=== PATIENT | male | born 1940 | race African-American/Black ===

== ENCOUNTER 2020-10-31 19:11 | Emergency (ER) | payer OTHER ==
[~2020-10-31] VITALS: Ht 190.5 cm; Wt 73.0 kg
[~2020-10-31 19:11] MED LIST: NIFE20CA PO; SPIRIVA
[2020-10-31] MEDS ORDERED: IPRATROPIUM BROMIDE (0.02%) 0.5MG/2.5ML NEB HHN STA (20:10)
[2020-10-31] MEDS ORDERED: DEXAMETHASONE 10 MG/ML VIAL IV ONE (20:15)
[2020-10-31 20:19] LABS: BASOPHILS % 0.5 % (0.0-2.0); EOSINOPHILS % 5.6 % (0.0-5.0); HEMATOCRIT. 40.7 % (42.0-52.0); LYMPHOCYTES % 20.6 % (20.0-50.0); MEAN CORPUSCULAR HEMOGLOBIN 27.2 pg (28.0-32.0); MEAN CORPUSCULAR VOLUME 85.2 fL (80.0-94.0); MEAN PLATELET VOLUME 8.8 fl (7.4-10.4); MONOCYTES % 11.2 % (2.0-8.0); NEUTROPHILS % 62.1 % (40.0-76.0); PLATELET 237 x1000/uL (130-400); RED BLOOD CELL COUNT 4.77 mill/uL (4.7-6.1); RED CELL DISTRIBUTION WIDTH 15.2 % (11.6-14.6)
[2020-10-31 20:24] LABS: CHLORIDE 104 mEq/L (98-107)
[2020-10-31 20:29] LABS: C REACTIVE PROTEIN QUANT 1.6 mg/L (0.0-3.0)
[2020-10-31 20:33] LABS: CREATINE KINASE 68 IU/L (39-308)
[2020-10-31 20:36] LABS: PROTHROMBIN TIME 10.9 sec (9.6-11.0)
[2020-10-31] MEDS: ALBUTEROL (0.083%) 2.5MG/3ML NEB HHN SCH ×3 (21:09→21:45)
[2020-10-31 21:29] LABS: CLARITY URINE CLEAR (CLEAR); COLOR URINE YELLOW (YELLOW); KETONES URINE NEGATIVE (NEGATIVE); LEUKOCYTE ESTERASE URINE NEGATIVE (NEGATIVE); NITRITE URINE NEGATIVE (NEGATIVE); OCCULT BLOOD URINE NEGATIVE (NEGATIVE); PROTEIN URINE NEGATIVE (NEGATIVE); SPECIFIC GRAVITY URINE 1.023 (1.005-1.030)
[2020-11-01 00:59] VITALS: BP 119/75
== END 2020-11-01 01:37 | disposition short-term general hospital (02) ==
LOC: ER 19:11 → CANBEDREQ 23:40 → ER 11-01 01:37
DX: J44.1 Chronic obstructive pulmonary disease with (acute) exacerbation (principal); I10 Essential (primary) hypertension; M19.90 Unspecified osteoarthritis, unspecified site; Z20.822 Contact with and (suspected) exposure to COVID-19; Z87.891 Personal history of nicotine dependence
CPT/HCPCS: 36415; 71045; 80053; 81003; 82550; 82728; 83605; 83615; 83880; 84145; 84484; 85025; 85384; 85610; 86140; 87040; 87086; 87426; 93005; 96374; 99285; J1100

== ENCOUNTER 2021-04-18 05:04 | Emergency (ER) | payer OTHER ==
[~2021-04-18] VITALS: Ht 175.3 cm; Wt 68.0 kg
[2021-04-18] MEDS ORDERED: METHYLPREDNISOLONE SOD SUCC 125 MG/2 ML VIAL IV STA (05:15)
[2021-04-18] MEDS ORDERED: ALBUTEROL (0.083%) 2.5MG/3ML NEB HHN STA (05:15)
[2021-04-18] MEDS ORDERED: IPRATROPIUM BROMIDE (0.02%) 0.5MG/2.5ML NEB HHN STA (05:15)
[2021-04-18 06:01] LABS: BASOPHILS % 0.7 % (0.0-2.0); EOSINOPHILS % 8.4 % (0.0-5.0); HEMATOCRIT. 40.3 % (42.0-52.0); HEMOGLOBIN. 13.4 g/dL (14.0-18.0); LYMPHOCYTES % 23.6 % (20.0-50.0); MEAN CORPUSCULAR VOLUME 84.1 fL (80.0-94.0); MEAN PLATELET VOLUME 8.9 fl (7.4-10.4); MONOCYTES % 13.8 % (2.0-8.0); NEUTROPHILS % 53.5 % (40.0-76.0); PLATELET 218 x1000/uL (130-400); RED BLOOD CELL COUNT 4.79 mill/uL (4.7-6.1); RED CELL DISTRIBUTION WIDTH 15.1 % (11.6-14.6)
[2021-04-18 06:10] LABS: CHLORIDE 105 mEq/L (98-107)
[2021-04-18] MEDS ORDERED: ALBU6.7H9 INH (06:45)
[2021-04-18] MEDS ORDERED: P50 PO (06:45)
[2021-04-18 07:15] VITALS: BP 132/89
== END 2021-04-18 07:35 | disposition home or self-care (01) ==
LOC: ER 05:04
DX: J44.1 Chronic obstructive pulmonary disease with (acute) exacerbation (principal); I10 Essential (primary) hypertension; M06.9 Rheumatoid arthritis, unspecified
CPT/HCPCS: 36415; 71045; 80053; 83880; 84484; 85025; 93005; 94644; 96374; 99285; J2930

== ENCOUNTER 2021-05-07 12:55 | Emergency (ER) | payer OTHER ==
[~2021-05-07] VITALS: Ht 177.8 cm; Wt 70.0 kg
[~2021-05-07 12:55] MED LIST changes: +ALBU6.7H9 INH; +P50 PO
[2021-05-07] MEDS ORDERED: ALBUTEROL (0.083%) 2.5MG/3ML NEB HHN STA (15:09)
[2021-05-07 15:41] LABS: BASOPHILS % 0.6 % (0.0-2.0); EOSINOPHILS % 6.2 % (0.0-5.0); HEMATOCRIT. 38.5 % (42.0-52.0); HEMOGLOBIN. 12.8 g/dL (14.0-18.0); LYMPHOCYTES % 17.3 % (20.0-50.0); MEAN CORPUSCULAR VOLUME 84.5 fL (80.0-94.0); MEAN PLATELET VOLUME 8.9 fl (7.4-10.4); MONOCYTES % 12.7 % (2.0-8.0); NEUTROPHILS % 63.2 % (40.0-76.0); PLATELET 188 x1000/uL (130-400); RED BLOOD CELL COUNT 4.56 mill/uL (4.7-6.1); RED CELL DISTRIBUTION WIDTH 15.6 % (11.6-14.6)
[2021-05-07 15:46] LABS: CHLORIDE 105 mEq/L (98-107); CLARITY URINE CLEAR (CLEAR); COLOR URINE YELLOW (YELLOW); KETONES URINE NEGATIVE (NEGATIVE); LEUKOCYTE ESTERASE URINE NEGATIVE (NEGATIVE); NITRITE URINE NEGATIVE (NEGATIVE); OCCULT BLOOD URINE NEGATIVE (NEGATIVE); PROTEIN URINE NEGATIVE (NEGATIVE); SPECIFIC GRAVITY URINE 1.016 (1.005-1.030)
[2021-05-07 18:15] VITALS: BP 128/85
[2021-05-07] MEDS ORDERED: ALBU6.7H9 INH (18:31)
== END 2021-05-07 19:17 | disposition home or self-care (01) ==
LOC: ER 12:55
DX: J44.1 Chronic obstructive pulmonary disease with (acute) exacerbation (principal); K59.00 Constipation, unspecified; I10 Essential (primary) hypertension
CPT/HCPCS: 36415; 71045; 80053; 81003; 85025; 93005; 94640; 99285

== ENCOUNTER 2022-03-06 08:27 | Emergency (ER) | payer OTHER ==
[~2022-03-06] VITALS: Ht 182.9 cm; Wt 75.0 kg
[2022-03-06] MEDS ORDERED: IPRATROPIUM BROMIDE (0.02%) 0.5MG/2.5ML NEB HHN STA (08:46)
[2022-03-06] MEDS ORDERED: ALBUTEROL (0.083%) 2.5MG/3ML NEB HHN STA (08:46)
[2022-03-06] MEDS ORDERED: METHYLPREDNISOLONE SOD SUCC 125 MG/2 ML VIAL IV STA (08:46)
[2022-03-06 10:29] LABS: BASOPHILS % 0.6 % (0.0-2.0); EOSINOPHILS % 5.6 % (0.0-5.0); HEMATOCRIT. 41.8 % (42.0-52.0); HEMOGLOBIN. 13.8 g/dL (14.0-18.0); LYMPHOCYTES % 17.8 % (20.0-50.0); MEAN CORPUSCULAR VOLUME 84.9 fL (80.0-94.0); MEAN PLATELET VOLUME 9.6 fl (7.4-10.4); MONOCYTES % 12.4 % (2.0-8.0); NEUTROPHILS % 63.6 % (40.0-76.0); PLATELET 212 x1000/uL (130-400); RED BLOOD CELL COUNT 4.92 mill/uL (4.7-6.1); RED CELL DISTRIBUTION WIDTH 15.5 % (11.6-14.6)
[2022-03-06 10:41] LABS: CHLORIDE 103 mEq/L (98-107)
[2022-03-06] MEDS ORDERED: P50 MT (12:20)
[2022-03-06 14:15] VITALS: BP 146/90
== END 2022-03-06 13:49 | disposition home or self-care (01) ==
LOC: ER 08:27
DX: J44.1 Chronic obstructive pulmonary disease with (acute) exacerbation (principal); I10 Essential (primary) hypertension; M19.90 Unspecified osteoarthritis, unspecified site
CPT/HCPCS: 36415; 71045; 80053; 83880; 85025; 93005; 94640; 96374; 99285; J2930

== ENCOUNTER 2022-07-07 01:59 | Inpatient (IN) | payer OTHER ==
[~2022-07-07] VITALS: Ht 190.5 cm; Wt 79.4 kg
[~2022-07-07 01:59] MED LIST changes: +ALBU6.7H3 INH; -ALBU6.7H9 INH; +P50 MT
[2022-07-07] MEDS ORDERED: AZITHROMYCIN 500MG/250ML 250 ML IV ONE (02:15)
[2022-07-07] MEDS ORDERED: CEFTRIAXONE 1 G PREMIX 50 ML IV ONE (02:15)
[2022-07-07] MEDS ORDERED: ALBUTEROL (0.083%) 2.5MG/3ML NEB HHN STA ×2 (02:18→04:57)
[2022-07-07] MEDS ORDERED: METHYLPREDNISOLONE SOD SUCC 125 MG/2 ML VIAL IV STA (02:18)
[2022-07-07] MEDS ORDERED: IPRATROPIUM BROMIDE (0.02%) 0.5MG/2.5ML NEB HHN STA ×2 (02:18→04:57)
[2022-07-07] MEDS ORDERED: MAGNESIUM 2 G PREMIX 50 ML IV ONE (02:30)
[2022-07-07 03:49] LABS: BASOPHILS % 0.2 % (0.0-2.0); CHLORIDE 103 mEq/L (98-107); EOSINOPHILS % 2.4 % (0.0-5.0); HEMATOCRIT. 38.5 % (42.0-52.0); HEMOGLOBIN. 12.7 g/dL (14.0-18.0); LYMPHOCYTES % 24.5 % (20.0-50.0); MEAN CORPUSCULAR HEMOGLOBIN 27.7 pg (28.0-32.0); MEAN CORPUSCULAR VOLUME 84.4 fL (80.0-94.0); MEAN PLATELET VOLUME 9.5 fl (7.4-10.4); MONOCYTES % 14.6 % (2.0-8.0); NEUTROPHILS % 58.3 % (40.0-76.0); PLATELET 208 x1000/uL (130-400); RED BLOOD CELL COUNT 4.57 mill/uL (4.7-6.1)
[2022-07-07 03:51] LABS: CLARITY URINE CLEAR (CLEAR); COLOR URINE YELLOW (YELLOW); KETONES URINE NEGATIVE (NEGATIVE); LEUKOCYTE ESTERASE URINE NEGATIVE (NEGATIVE); NITRITE URINE NEGATIVE (NEGATIVE); OCCULT BLOOD URINE NEGATIVE (NEGATIVE); PH URINE 6.5 (4.5-8.0); PROTEIN URINE NEGATIVE (NEGATIVE); SPECIFIC GRAVITY URINE 1.017 (1.005-1.030)
[2022-07-07] MEDS ORDERED: IPRATROPIUM/ALBUTEROL 0.5-3(2.5)MG/3ML NEB NEB PRN (07:00)
[2022-07-07] MEDS ORDERED: NITROGLYCERIN 0.4MG TABLET SL SL PRN (07:00)
[2022-07-07] MEDS ORDERED: MAGNESIUM/ALUMINUM HYDROXIDE/SIMETHICONE 30ML UDC PO PRN (07:00)
[2022-07-07] MEDS ORDERED: CLONIDINE 0.1MG TABLET PO PRN (07:00)
[2022-07-07] MEDS ORDERED: DOCUSATE SODIUM 100MG CAPSULE PO PRN (07:00)
[2022-07-07] MEDS ORDERED: GUAIFENESIN 200MG/10ML SUGAR FREE UDC PO PRN (07:00)
[2022-07-07] MEDS ORDERED: ONDANSETRON HCL 4MG/2ML INJ IV PRN (07:00)
[2022-07-07] MEDS ORDERED: ZOLPIDEM TARTRATE 5MG TABLET PO PRN (07:00)
[2022-07-07] MEDS ORDERED: ACETAMINOPHEN 325MG TABLET PO PRN ×2 (07:00)
[2022-07-07] MEDS ORDERED: KETOROLAC 15MG/ML VIAL IV PRN (07:00)
[2022-07-07 08:10] LABS: BG CARBOXYHEMOGLOBIN 0.8 % (0.5-1.5); BG DEOXYHEMOGLOBIN 0.4 % (0.0-5.0); BG FRACTION INSPIRED OXYGEN 100; BG HCO3 ACT 27.9 mmol/L (22.0-26.0); BG METHEMOGLOBIN 0.4 % (0.0-1.5); BG OXYGEN SATURATION 99.6 % (92.0-98.5); BG OXYHEMOGLOBIN 98.4 % (94.0-97.0); BG PCO2 53.7 mmHg (35.0-45.0); BG PH 7.333 (7.350-7.450); BG PO2 197.9 mmHg (75.0-100.0); BG SAMPLE SITE LEFT BRACHIAL; BG TOTAL HEMOGLOBIN 13.6 g/dL (12.0-18.0); BG VENT MODE MASK - NRB
[2022-07-07 09:49] LABS: ETHANOL BLOOD < 10 mg/dL; HDL CHOLESTEROL 77 mg/dL (40-59); LDL CHOLESTEROL 65 mg/dL (5-100); T4 FREE 1.02 ng/dL (0.76-1.46); TOTAL IRON BINDING CAPACITY 312 ug/dL (250-450)
[2022-07-07 10:21] LABS: VITAMIN B12 SERUM 726 pg/mL (211-911)
[2022-07-07] MEDS: METHYLPREDNISOLONE SOD SUCC 125 MG/2 ML VIAL IV SCH ×3 (10:34→21:14)
[2022-07-07] MEDS: GUAIFENESIN/DM 600MG/30MG ER TAB 12HR PO SCH ×2 (10:34→20:48)
[2022-07-07] MEDS: AMLODIPINE 10MG TABLET PO SCH (10:35)
[2022-07-07] MEDS: FAMOTIDINE 20MG TABLET PO SCH ×2 (10:35→20:48)
[2022-07-07] MEDS: ENOXAPARIN 40MG/0.4ML SYR SUBCUT SCH (10:36)
[2022-07-07 12:05] LABS: *AMPHETAMINES SCREEN URINE NEGATIVE (NEGATIVE); *BARBITURATES SCREEN URINE NEGATIVE (NEGATIVE); *BENZODIAZEPINES SCREEN URINE NEGATIVE (NEGATIVE); *COCAINE SCREEN URINE NEGATIVE (NEGATIVE); CANNABINOID URINE SCREEN NEGATIVE (NEGATIVE); METHADONE URINE SCREEN NEGATIVE (NEGATIVE); OPIATES URINE SCREEN NEGATIVE (NEGATIVE); PHENCYCLIDINE URINE SCREEN NEGATIVE (NEGATIVE)
[2022-07-07 17:09] VITALS: BP 158/89
[2022-07-07 17:37] VITALS: BP 142/89
[2022-07-07] MEDS ORDERED: ASPI-1497 MT (17:56)
[2022-07-07 20:00] VITALS: BP 128/86
[2022-07-07] MEDS ORDERED: AZITHROMYCIN 500 MG in DEXT 5% WATER 250 ML IV SCH (21:00)
[2022-07-08] VITALS: BP 154/85
[2022-07-08 04:00] VITALS: BP 138/84
[2022-07-08] MEDS: METHYLPREDNISOLONE SOD SUCC 125 MG/2 ML VIAL IV SCH ×2 (05:27→13:40)
[2022-07-08 07:19] LABS: BASOPHILS % 0.1 % (0.0-2.0); HEMATOCRIT. 40.3 % (42.0-52.0); HEMOGLOBIN. 13.5 g/dL (14.0-18.0); LYMPHOCYTES % 8.1 % (20.0-50.0); MEAN CORPUSCULAR HEMOGLOBIN 28.2 pg (28.0-32.0); MEAN CORPUSCULAR VOLUME 84.4 fL (80.0-94.0); MEAN PLATELET VOLUME 9.3 fl (7.4-10.4); MONOCYTES % 7.4 % (2.0-8.0); NEUTROPHILS % 84.4 % (40.0-76.0); PLATELET 242 x1000/uL (130-400); RED BLOOD CELL COUNT 4.78 mill/uL (4.7-6.1); RED CELL DISTRIBUTION WIDTH 15.9 % (11.6-14.6)
[2022-07-08 08:37] LABS: CHLORIDE 100 mEq/L (98-107)
[2022-07-08 08:49] LABS: CREATINE KINASE 180 IU/L (39-308); CREATINE KINASE MB FRACTION 3.9 ng/mL (0.5-3.6); PHOSPHORUS 3.3 mg/dL (2.5-4.9)
[2022-07-08] MEDS: ENOXAPARIN 40MG/0.4ML SYR SUBCUT SCH (09:03)
[2022-07-08] MEDS: FAMOTIDINE 20MG TABLET PO SCH ×2 (09:04→20:08)
[2022-07-08] MEDS: AMLODIPINE 10MG TABLET PO SCH (09:04)
[2022-07-08] MEDS: GUAIFENESIN/DM 600MG/30MG ER TAB 12HR PO SCH ×2 (09:41→20:08)
[2022-07-08 12:00] VITALS: BP 131/85
[2022-07-08] MEDS: IPRATROPIUM/ALBUTEROL 0.5-3(2.5)MG/3ML NEB HHN SCH ×3 (12:50→21:26)
[2022-07-08] MEDS: BUDESONIDE 0.5MG/2ML NEB HHN SCH ×2 (12:50→21:26)
[2022-07-08 16:00] VITALS: BP 134/87
[2022-07-08 16:33] LABS: CREATINE KINASE MB FRACTION 3.4 ng/mL (0.5-3.6)
[2022-07-08 20:00] VITALS: BP 105/66
[2022-07-08] MEDS ORDERED: AZITHROMYCIN 500 MG TABLET PO SCH (21:00)
[2022-07-08] MEDS: METHYLPREDNISOLONE SOD SUCC 40 MG/ML VIAL IV SCH (21:33)
[2022-07-09] VITALS (7 sets, daily range): BP systolic 111–152; BP diastolic 54–95
[2022-07-09] MEDS: IPRATROPIUM/ALBUTEROL 0.5-3(2.5)MG/3ML NEB HHN SCH ×6 (00:40→20:52)
[2022-07-09] MEDS: GUAIFENESIN/DM 600MG/30MG ER TAB 12HR PO SCH (08:55)
[2022-07-09] MEDS: FAMOTIDINE 20MG TABLET PO SCH (08:55)
[2022-07-09] MEDS: AMLODIPINE 10MG TABLET PO SCH (08:56)
[2022-07-09] MEDS: METHYLPREDNISOLONE SOD SUCC 40 MG/ML VIAL IV SCH (08:56)
[2022-07-09] MEDS: ENOXAPARIN 40MG/0.4ML SYR SUBCUT SCH (08:56)
[2022-07-09] MEDS: BUDESONIDE 0.5MG/2ML NEB HHN SCH ×2 (09:21→20:52)
[2022-07-09] MEDS ORDERED: PREDNISONE 20MG TABLET PO SCH (21:00)
== END 2022-07-09 22:48 | disposition short-term general hospital (02) | DRG 189 ==
LOC: ER 02:18 → 7EST 04:34 → ENRESERV 16:05
PROVIDERS: ADMIT Internal Medicine; ATTEND Internal Medicine
DX: J96.21 Acute and chronic respiratory failure with hypoxia (principal); J44.1 Chronic obstructive pulmonary disease with (acute) exacerbation; J96.22 Acute and chronic respiratory failure with hypercapnia; D63.8 Anemia in other chronic diseases classified elsewhere; I10 Essential (primary) hypertension; M19.90 Unspecified osteoarthritis, unspecified site; Z20.822 Contact with and (suspected) exposure to COVID-19; R73.03 Prediabetes; Z79.899 Other long term (current) drug therapy; Z87.891 Personal history of nicotine dependence; Z79.82 Long term (current) use of aspirin
CPT/HCPCS: 36415; 36600; 71045; 80053; 80061; 80305; 80320; 81003; 82375; 82550; 82553; 82607; 82746; 82805; 83036; 83540; 83550; 83605; 83735; 83880; 84100; 84145; 84439; 84443; 84484; 85025; 87426; 87804; 93005; 93306; 94640; 99285; C9803; J0456; J0696; J1650; J2920; J2930; J3475; J7626; G0480

== ENCOUNTER 2023-06-18 08:18 | Emergency (ER) | payer MEDICARE, OTHER ==
[~2023-06-18] VITALS: Ht 188 cm; Wt 80.0 kg
[~2023-06-18 08:18] MED LIST changes: +ASPI-1497 MT
[2023-06-18 09:04] LABS: BASOPHILS % 0.3 % (0.0-2.0); EOSINOPHILS % 3.2 % (0.0-5.0); HEMATOCRIT. 42.2 % (42.0-52.0); LYMPHOCYTES % 12.4 % (20.0-50.0); MEAN CORPUSCULAR HEMOGLOBIN 28.3 pg (28.0-32.0); MEAN CORPUSCULAR HGB CONC 33.2 g/dL (31.0-37.0); MEAN CORPUSCULAR VOLUME 85.4 fL (80.0-94.0); MEAN PLATELET VOLUME 9.1 fl (7.4-10.4); NEUTROPHILS % 74.1 % (40.0-76.0); PLATELET 244 x1000/uL (130-400); RED BLOOD CELL COUNT 4.94 mill/uL (4.7-6.1); RED CELL DISTRIBUTION WIDTH 15.9 % (11.6-14.6); WHITE BLOOD COUNT 8.4 x1000/uL (4.5-11.0)
[2023-06-18] MEDS ORDERED: ALBUTEROL (0.083%) 2.5MG/3ML NEB HHN STA (09:30)
[2023-06-18] MEDS ORDERED: METHYLPREDNISOLONE SOD SUCC 125MG/2ML (ACT-O-VIAL) IV STA (09:30)
[2023-06-18] MEDS ORDERED: MAGNESIUM 2 G PREMIX 50 ML IV STA (09:30)
[2023-06-18] MEDS ORDERED: IPRATROPIUM BROMIDE (0.02%) 0.5MG/2.5ML NEB HHN STA (09:30)
[2023-06-18 09:43] LABS: ALANINE AMINOTRANSFERASE 16 IU/L (10-49); ALBUMIN 4.7 g/dL (3.2-4.8); ASPARTATE AMINOTRANSFERASE 28 IU/L (<34); CALCIUM 9.7 mg/dL (8.7-10.4); CARBON DIOXIDE 29 mEq/L (21-32); CHLORIDE 101 mEq/L (98-107); CREATININE 0.8 mg/dL (0.6-1.3); GLUCOSE 90 mg/dL (70-105); POTASSIUM 4.5 mEq/L (3.5-5.1); PROTEIN TOTAL 7.7 g/dL (6.0-8.3); SODIUM 138 mEq/L (136-145); UREA NITROGEN BLOOD 13 mg/dL (9-23)
[2023-06-18 09:55] VITALS: PULSE 75; RESP 22; O2SAT 95
[2023-06-18 12:52] LABS: BG BASE EXCESS -0.5 mmol/L (-2.0-2.0); BG CARBOXYHEMOGLOBIN 0.6 % (0.5-1.5); BG DEOXYHEMOGLOBIN 4.6 % (0.0-5.0); BG FRACTION INSPIRED OXYGEN 28; BG HCO3 ACT 24.9 mmol/L (22.0-26.0); BG METHEMOGLOBIN 0.3 % (0.0-1.5); BG OXYGEN SATURATION 95.4 % (92.0-98.5); BG OXYHEMOGLOBIN 94.5 % (94.0-97.0); BG PCO2 43.6 mmHg (35.0-45.0); BG PH 7.374 (7.350-7.450); BG PO2 78.6 mmHg (75.0-100.0); BG SAMPLE SITE RIGHT RADIAL; BG TOTAL HEMOGLOBIN 13.9 g/dL (12.0-18.0); BG VENT MODE NASAL CANNULA
[2023-06-18 14:07] LABS: TROPONIN I HIGH SENSITIVITY 9 ng/L (3.0-53)
[2023-06-18 17:17] VITALS: BP 136/77; PULSE 103; RESP 18; TEMP 98.1
== END 2023-06-18 17:24 | disposition short-term general hospital (02) ==
LOC: ER 08:18
DX: J44.1 Chronic obstructive pulmonary disease with (acute) exacerbation (principal); J44.9 Chronic obstructive pulmonary disease, unspecified; E78.00 Pure hypercholesterolemia, unspecified; I10 Essential (primary) hypertension
CPT/HCPCS: 99285; 96366; 96365; 71045; 96375; 80053; 83880; 85025; 84484; 36415; 82805; 82375; 93005; 94644; 36600; J3475; J2930

== ENCOUNTER 2023-07-07 11:36 | Emergency (ER) | payer OTHER ==
[~2023-07-07] VITALS: Ht 175.3 cm; Wt 70.0 kg
[2023-07-07] MEDS ORDERED: IPRATROPIUM BROMIDE (0.02%) 0.5MG/2.5ML NEB HHN STA (11:57)
[2023-07-07] MEDS ORDERED: METHYLPREDNISOLONE SOD SUCC 125MG/2ML (ACT-O-VIAL) IV STA (11:57)
[2023-07-07] MEDS ORDERED: ALBUTEROL (0.083%) 2.5MG/3ML NEB HHN STA (11:57)
[2023-07-07] MEDS ORDERED: MAGNESIUM 2 G PREMIX 50 ML IV STA (11:57)
[2023-07-07 12:16] VITALS: PULSE 99; RESP 26; O2SAT 95
[2023-07-07 12:35] LABS: BASOPHILS % 0.2 % (0.0-2.0); EOSINOPHILS % 1.7 % (0.0-5.0); HEMATOCRIT. 42.4 % (42.0-52.0); HEMOGLOBIN. 14.3 g/dL (14.0-18.0); LYMPHOCYTES % 10.9 % (20.0-50.0); MEAN CORPUSCULAR HEMOGLOBIN 28.8 pg (28.0-32.0); MEAN CORPUSCULAR HGB CONC 33.7 g/dL (31.0-37.0); MEAN CORPUSCULAR VOLUME 85.5 fL (80.0-94.0); MEAN PLATELET VOLUME 8.6 fl (7.4-10.4); MONOCYTES % 9.7 % (2.0-8.0); NEUTROPHILS % 77.5 % (40.0-76.0); PLATELET 283 x1000/uL (130-400); RED BLOOD CELL COUNT 4.96 mill/uL (4.7-6.1); RED CELL DISTRIBUTION WIDTH 15.5 % (11.6-14.6); WHITE BLOOD COUNT 8.8 x1000/uL (4.5-11.0)
[2023-07-07 12:42] LABS: ALANINE AMINOTRANSFERASE 17 IU/L (10-49); ALBUMIN 4.7 g/dL (3.2-4.8); ASPARTATE AMINOTRANSFERASE 20 IU/L (<34); CALCIUM 9.6 mg/dL (8.7-10.4); CARBON DIOXIDE 32 mEq/L (21-32); CHLORIDE 104 mEq/L (98-107); CREATININE 0.8 mg/dL (0.6-1.3); GLUCOSE 101 mg/dL (70-105); POTASSIUM 4.7 mEq/L (3.5-5.1); PROTEIN TOTAL 8.2 g/dL (6.0-8.3); SODIUM 141 mEq/L (136-145); TROPONIN I HIGH SENSITIVITY 6 ng/L (3.0-53); UREA NITROGEN BLOOD 15 mg/dL (9-23)
[2023-07-07 14:04] LABS: CLARITY URINE CLEAR (CLEAR); COLOR URINE YELLOW (YELLOW); GLUCOSE URINE NEGATIVE (NEGATIVE); KETONES URINE 3+ (NEGATIVE); LEUKOCYTE ESTERASE URINE TRACE (NEGATIVE); NITRITE URINE NEGATIVE (NEGATIVE); OCCULT BLOOD URINE NEGATIVE (NEGATIVE); PH URINE 7.5 (4.5-8.0); PROTEIN URINE NEGATIVE (NEGATIVE); SPECIFIC GRAVITY URINE 1.018 (1.005-1.030); UROBILINOGEN URINE 0.2 E.U./dL (0.2-1.0)
[2023-07-07 14:27] LABS: MUCUS URINE 2+ /lpf (NONE/TRACE); SQUAMOUS EPITHELIAL CELL URINE RARE /lpf (RARE/1+)
[2023-07-07 14:28] LABS: RBC URINE 0-2 /hpf (0-2); WBC URINE 15-25 /hpf (0-2)
[2023-07-07 14:29] LABS: BACTERIA URINE TRACE
[2023-07-07 14:35] LABS: TRIPLE PHOSPHATE CRYSTAL URINE 1+ /lpf
[2023-07-07 14:51] LABS: TROPONIN I HIGH SENSITIVITY 7 ng/L (3.0-53)
[2023-07-07 17:23] VITALS: BP 143/86; PULSE 101; RESP 20; TEMP 98.6
== END 2023-07-07 17:41 | disposition short-term general hospital (02) ==
LOC: ER 11:36 → CANBEDREQ 07-09 10:42
DX: J44.1 Chronic obstructive pulmonary disease with (acute) exacerbation (principal); M19.90 Unspecified osteoarthritis, unspecified site; E78.00 Pure hypercholesterolemia, unspecified; I10 Essential (primary) hypertension
CPT/HCPCS: 99285; 96365; 71045; 96366; 96375; 80053; 81003; 83605; 85025; 87040; 87086; 84484; 87804 ×2; 36415; 84145; 93005; 94644; J3475; J2930

== ENCOUNTER 2024-09-14 02:34 | Emergency (ER) | payer OTHER ==
[~2024-09-14] VITALS: Ht 177.8 cm; Wt 66.0 kg
[~2024-09-14 02:34] MED LIST changes: -NIFE20CA PO; +NIFE20CA8 PO; +P20 PO; -P50 MT; -P50 PO
[2024-09-14 02:38] VITALS: O2SAT 96
[2024-09-14] MEDS ORDERED: DILTIAZEM HCL 5MG/ML 5ML VIAL IV ONE ×3 (02:45→04:45)
[2024-09-14] MEDS: DILTIAZEM HCL 5MG/ML 5ML VIAL IV NR ×3 (02:48→04:45)
[2024-09-14] MEDS: SODIUM CHLORIDE 0.9% 500 ML IV ONE ×2 (02:50→05:21)
[2024-09-14 02:55] LABS: HEMATOCRIT. 41.8 % (42.0-52.0); HEMOGLOBIN. 13.8 g/dL (14.0-18.0); MEAN CORPUSCULAR HEMOGLOBIN 28.3 pg (28.0-32.0); MEAN CORPUSCULAR VOLUME 85.7 fL (80.0-94.0); MEAN PLATELET VOLUME 9.1 fl (7.4-10.4); PLATELET 272 x1000/uL (130-400); RED BLOOD CELL COUNT 4.87 mill/uL (4.7-6.1); RED CELL DISTRIBUTION WIDTH 15.6 % (11.6-14.6); WHITE BLOOD COUNT 18.6 x1000/uL (4.5-11.0)
[2024-09-14 03:03] LABS: CHLORIDE 102 mEq/L (98-107); POTASSIUM 3.9 mEq/L (3.5-5.1); SODIUM 141 mEq/L (136-145)
[2024-09-14 03:04] LABS: CARBON DIOXIDE 31 mEq/L (21-32)
[2024-09-14 03:05] LABS: CALCIUM 9.8 mg/dL (8.7-10.4)
[2024-09-14 03:07] LABS: INR 0.9; PARTIAL THROMBOPLASTIN TIME 24.9 sec (23.4-31.0); PROTHROMBIN TIME 10.3 sec (9.6-11.0)
[2024-09-14 03:09] LABS: CREATININE 0.9 mg/dL (0.6-1.3)
[2024-09-14 03:10] LABS: GLUCOSE 166 mg/dL (70-105); UREA NITROGEN BLOOD 27 mg/dL (9-23)
[2024-09-14 03:12] LABS: TROPONIN I HIGH SENSITIVITY 14 ng/L (3.0-53)
[2024-09-14] MEDS: DILTIAZEM HCL 120MG CAPSULE ER 24HR PO ONE (03:17)
[2024-09-14 03:19] LABS: DIFFERENTIAL COMMENT 1
[2024-09-14 03:34] LABS: ETHANOL BLOOD < 10 mg/dL (<10)
[2024-09-14 03:48] LABS: PHOSPHORUS 2.5 mg/dL (2.5-4.9)
[2024-09-14 04:10] LABS: CLARITY URINE CLOUDY (CLEAR); COLOR URINE YELLOW (YELLOW); GLUCOSE URINE NEGATIVE (NEGATIVE); KETONES URINE NEGATIVE (NEGATIVE); LEUKOCYTE ESTERASE URINE TRACE (NEGATIVE); NITRITE URINE NEGATIVE (NEGATIVE); OCCULT BLOOD URINE NEGATIVE (NEGATIVE); PROTEIN URINE 1+ (NEGATIVE); SPECIFIC GRAVITY URINE 1.019 (1.005-1.030)
[2024-09-14 04:15] LABS: *AMPHETAMINES SCREEN URINE NEGATIVE (NEGATIVE); *BARBITURATES SCREEN URINE NEGATIVE (NEGATIVE); *BENZODIAZEPINES SCREEN URINE NEGATIVE (NEGATIVE); *COCAINE SCREEN URINE NEGATIVE (NEGATIVE); CANNABINOID URINE SCREEN NEGATIVE (NEGATIVE); ECSTASY MDMA SCREEN URINE NEGATIVE (NEGATIVE); METHADONE URINE SCREEN NEGATIVE (NEGATIVE); OPIATES URINE SCREEN NEGATIVE (NEGATIVE); PHENCYCLIDINE URINE SCREEN NEGATIVE (NEGATIVE)
[2024-09-14 04:59] LABS: PLATELET ESTIMATE NORMAL
[2024-09-14 05:12] LABS: RBC URINE 0-2 /hpf (0-2); SQUAMOUS EPITHELIAL CELL URINE 1+ /lpf (RARE/1+)
[2024-09-14 05:13] LABS: BACTERIA URINE TRACE
[2024-09-14] MEDS: MAGNESIUM 2 G PREMIX 50 ML IV ONE (05:25)
[2024-09-14 05:46] LABS: LACTIC ACID 2.3 mmol/L (0.4-2.0)
[2024-09-14] MEDS: SODIUM PHOSPHATE 30 MMOL in DEXT 5% WATER 490 ML IV ONE (05:53)
[2024-09-14 07:30] VITALS: BP 126/70; PULSE 76; RESP 17; O2SAT 97
== END 2024-09-14 08:46 | disposition short-term general hospital (02) ==
LOC: ER 02:34 → CANBEDREQ 09:13
DX: I48.91 Unspecified atrial fibrillation (principal); E83.42 Hypomagnesemia; E78.00 Pure hypercholesterolemia, unspecified; J44.89 Other specified chronic obstructive pulmonary disease; I10 Essential (primary) hypertension; E83.39 Other disorders of phosphorus metabolism; M19.90 Unspecified osteoarthritis, unspecified site; Z79.52 Long term (current) use of systemic steroids; Z79.82 Long term (current) use of aspirin; Z20.822 Contact with and (suspected) exposure to COVID-19; Z79.899 Other long term (current) drug therapy
CPT/HCPCS: 80305; 80048; 81003; 80320; 83880; 83605; 83690; 83735; 84100; 85025; 85610; 85730; 84484; 87804 ×2; 36415; 84145; 71045; 93005; 96368; 96365; 96375; 96376; 99285; 87426; J3490 ×2; J3475; J7060; J7040; A4606; G0480

== ENCOUNTER 2025-02-18 08:47 | Emergency (ER) | payer OTHER ==
[~2025-02-18] VITALS: Ht 177.8 cm; Wt 68.0 kg
[2025-02-18 08:48] VITALS: TEMP 36.9
[2025-02-18] MEDS: ALBUTEROL (0.083%) 2.5MG/3ML NEB HHN SCH (09:07)
[2025-02-18] MEDS: IPRATROPIUM BROMIDE (0.02%) 0.5MG/2.5ML NEB HHN SCH (09:07)
[2025-02-18 09:08] VITALS: PULSE 92; RESP 20; O2SAT 98
[2025-02-18] MEDS: METHYLPREDNISOLONE SOD SUCC 125MG/2ML (ACT-O-VIAL) IV ONE (09:33)
[2025-02-18] MEDS: MAGNESIUM 2 G PREMIX 50 ML IV ONE (09:33)
[2025-02-18 09:34] LABS: BASOPHILS % 0.2 % (0.0-2.0); EOSINOPHILS % 0.9 % (0.0-5.0); HEMATOCRIT. 41.6 % (42.0-52.0); HEMOGLOBIN. 13.7 g/dL (14.0-18.0); LYMPHOCYTES % 13.8 % (20.0-50.0); MEAN PLATELET VOLUME 9.4 fl (7.4-10.4); MONOCYTES % 14.3 % (2.0-8.0); NEUTROPHILS % 70.8 % (40.0-76.0); PLATELET 244 x1000/uL (130-400); RED BLOOD CELL COUNT 4.81 mill/uL (4.7-6.1); RED CELL DISTRIBUTION WIDTH 15.2 % (11.6-14.6)
[2025-02-18 10:01] LABS: CREATININE 0.8 mg/dL (0.6-1.3); UREA NITROGEN BLOOD 17 mg/dL (9-23)
[2025-02-18 10:02] LABS: TROPONIN I HIGH SENSITIVITY 10 ng/L (3.0-53)
[2025-02-18 10:26] VITALS: PULSE 100; RESP 20; O2SAT 99
[2025-02-18] MEDS: ALBUTEROL (0.083%) 2.5MG/3ML NEB HHN ONE (10:26)
[2025-02-18] MEDS ORDERED: IPRATROPIUM/ALBUTEROL 0.5-3(2.5)MG/3ML NEB NEB PRN (11:00)
[2025-02-18] MEDS ORDERED: ONDANSETRON HCL 4MG/2ML INJ IV PRN (11:00)
[2025-02-18] MEDS ORDERED: HYDROCODONE/ACETAMINOPHEN 5/325MG TABLET PO PRN (11:00)
[2025-02-18] MEDS ORDERED: MAGNESIUM/ALUMINUM HYDROXIDE/SIMETHICONE 30ML UDC PO PRN (11:00)
[2025-02-18] MEDS ORDERED: NIFEDIPINE XL 30MG TAB PO SCH (11:00)
[2025-02-18] MEDS: ENOXAPARIN 40MG/0.4ML SYR SUBCUT SCH (11:00)
[2025-02-18] MEDS ORDERED: CLONIDINE 0.1MG TABLET PO PRN (11:00)
[2025-02-18] MEDS ORDERED: NALOXONE HCL 0.4MG/ML VIAL IV PRN (11:00)
[2025-02-18] MEDS ORDERED: ACETAMINOPHEN 325MG TABLET PO PRN (11:00)
[2025-02-18] MEDS: METHYLPREDNISOLONE SOD SUCC 40MG/ML (ACT-O-VIAL) IV SCH (11:41)
[2025-02-18] MEDS: NIFEDIPINE XL 30MG TAB PO SCH (12:27)
[2025-02-18 12:48] VITALS: BP 162/96; PULSE 99; RESP 20; O2SAT 99
[2025-02-19] MEDS ORDERED: ASPIRIN 81MG EC TABLET PO SCH (09:00)
[2025-02-19] MEDS ORDERED: PANTOPRAZOLE SODIUM 40 MG/VIAL IV SCH (09:00)
== END 2025-02-18 13:05 | disposition short-term general hospital (02) ==
LOC: ER 08:53
DX: J44.1 Chronic obstructive pulmonary disease with (acute) exacerbation (principal); E78.00 Pure hypercholesterolemia, unspecified; I10 Essential (primary) hypertension; Z79.899 Other long term (current) drug therapy; Z79.82 Long term (current) use of aspirin
CPT/HCPCS: 99285; 93880; 93970; 96365; 71045; 96375; 80048; 85025; 84484; 36415; 76604; 94640; 93005; 96376; 94644; J2919 ×2; J3475; 94070; 94664; 98960; J1650

== ENCOUNTER 2025-07-04 07:43 | Emergency (ER) | payer MEDICARE, OTHER ==
[~2025-07-04] VITALS: Ht 182.9 cm; Wt 72.0 kg
[~2025-07-04 07:43] MED LIST changes: -ALBU6.7H3 INH; -ASPI-1497 MT; +NIFE-33 PO; -NIFE20CA8 PO; -P20 PO; -SPIRIVA
[2025-07-04 08:23] LABS: BASOPHILS % 0.4 % (0.0-2.0); EOSINOPHILS % 5.6 % (0.0-5.0); HEMATOCRIT. 40.2 % (42.0-52.0); HEMOGLOBIN. 13.0 g/dL (14.0-18.0); LYMPHOCYTES % 22.3 % (20.0-50.0); MEAN PLATELET VOLUME 8.9 fl (7.4-10.4); MONOCYTES % 13.8 % (2.0-8.0); NEUTROPHILS % 57.9 % (40.0-76.0); PLATELET 261 x1000/uL (130-400); RED BLOOD CELL COUNT 4.68 mill/uL (4.7-6.1); RED CELL DISTRIBUTION WIDTH 15.4 % (11.6-14.6)
[2025-07-04 08:37] LABS: CREATININE 0.8 mg/dL (0.6-1.3)
[2025-07-04 08:38] LABS: PROTEIN TOTAL 7.8 g/dL (6.0-8.3); UREA NITROGEN BLOOD 13 mg/dL (9-23)
[2025-07-04 08:39] LABS: ASPARTATE AMINOTRANSFERASE 18 IU/L (<34)
[2025-07-04 08:40] LABS: BILIRUBIN TOTAL 0.6 mg/dL (0.1-1.0)
[2025-07-04] MEDS ORDERED: POLY17PO3 MT (10:40)
[2025-07-04] MEDS ORDERED: IOHEXOL-300 100 ML BOTTLE ONE (11:01)
[2025-07-04] MEDS: PREDNISONE 20MG TABLET PO ONE (11:39)
[2025-07-04] MEDS: ALBUTEROL (0.083%) 2.5MG/3ML NEB HHN SCH (11:44)
[2025-07-04] MEDS: IPRATROPIUM BROMIDE (0.02%) 0.5MG/2.5ML NEB HHN SCH (11:44)
[2025-07-04 11:45] VITALS: PULSE 83; RESP 20; O2SAT 90
[2025-07-04 12:05] VITALS: PULSE 88; RESP 18; O2SAT 95
[2025-07-04 12:22] LABS: CLARITY URINE CLEAR (CLEAR); COLOR URINE YELLOW (YELLOW); GLUCOSE URINE NEGATIVE (NEGATIVE); KETONES URINE NEGATIVE (NEGATIVE); LEUKOCYTE ESTERASE URINE NEGATIVE (NEGATIVE); NITRITE URINE NEGATIVE (NEGATIVE); OCCULT BLOOD URINE NEGATIVE (NEGATIVE); PH URINE 8.0 (4.5-8.0); PROTEIN URINE NEGATIVE (NEGATIVE); SPECIFIC GRAVITY URINE 1.014 (1.005-1.030); UROBILINOGEN URINE 1.0 E.U./dL (0.2-1.0)
[2025-07-04 12:27] VITALS: PULSE 86; RESP 20; O2SAT 95
[2025-07-04] MEDS ORDERED: P50 MT (12:36)
[2025-07-04 12:51] VITALS: BP 150/76; PULSE 82; RESP 18; TEMP 36.8; O2SAT 96
== END 2025-07-04 12:51 | disposition home or self-care (01) ==
LOC: EDBD → ER 07:43 → CANBEDREQ 10:35 → ER 12:51
DX: K59.00 Constipation, unspecified (principal); I10 Essential (primary) hypertension; J44.1 Chronic obstructive pulmonary disease with (acute) exacerbation; Z79.899 Other long term (current) drug therapy; Z99.81 Dependence on supplemental oxygen
CPT/HCPCS: 99285; 74177; 71045; 80053; 81003; 83690; 85025; 36415; 94640; 93005; 98960; Q9967; J7512; 94070; 94664; A4606

== ENCOUNTER 2025-07-15 23:11 | Emergency (ER) | payer OTHER ==
[~2025-07-15] VITALS: Ht 177.8 cm; Wt 80.0 kg
[~2025-07-15 23:11] MED LIST changes: +P50 MT; +POLY17PO3 MT
[2025-07-16 00:15] LABS: HEMATOCRIT. 39.0 % (42.0-52.0); HEMOGLOBIN. 12.7 g/dL (14.0-18.0); MEAN PLATELET VOLUME 8.5 fl (7.4-10.4); PLATELET 270 x1000/uL (130-400); RED BLOOD CELL COUNT 4.55 mill/uL (4.7-6.1); RED CELL DISTRIBUTION WIDTH 15.3 % (11.6-14.6)
[2025-07-16 00:28] LABS: INR 1.0
[2025-07-16 00:30] VITALS: PULSE 83; RESP 22; O2SAT 96
[2025-07-16 00:30] LABS: CREATININE 0.9 mg/dL (0.6-1.3)
[2025-07-16 00:31] LABS: UREA NITROGEN BLOOD 16 mg/dL (9-23)
[2025-07-16 00:32] LABS: EOSINOPHILS % MANUAL 6.0 % (0.0-5.0); LYMPHOCYTES % MANUAL 18.0 % (20.0-50.0); MONOCYTES % MANUAL 13.0 % (2.0-8.0); NEUTROPHILS % MANUAL 63.0 % (45.0-75.0); PLATELET ESTIMATE NORMAL
[2025-07-16] MEDS: IPRATROPIUM BROMIDE (0.02%) 0.5MG/2.5ML NEB HHN ONE (00:35)
[2025-07-16] MEDS: ALBUTEROL (0.083%) 2.5MG/3ML NEB HHN ONE (00:36)
[2025-07-16 00:47] LABS: TROPONIN I HIGH SENSITIVITY 8 ng/L (3.0-53)
[2025-07-16] MEDS: METHYLPREDNISOLONE SOD SUCC 125MG/2ML (ACT-O-VIAL) IV ONE (01:23)
[2025-07-16] MEDS: SODIUM CHLORIDE 0.9% 1,000 ML IV ONE (01:24)
[2025-07-16 01:34] LABS: BG BASE EXCESS 1.0 mmol/L (-2.0-3.0); BG CARBOXYHEMOGLOBIN 0.6 % (0.5-1.5); BG DEOXYHEMOGLOBIN 5.7 % (0.0-5.0); BG FLOW(L/min) 2.00 L/min; BG FRACTION INSPIRED OXYGEN 28; BG HCO3 ACT 27.1 mmol/L (21.0-28.0); BG METHEMOGLOBIN 0.3 % (0.5-1.5); BG OXYGEN SATURATION 94.2 % (94.0-98.0); BG OXYHEMOGLOBIN 93.4 % (94.0-98.0); BG PCO2 49.0 mmHg (35.0-48.0); BG PH 7.360 (7.350-7.450); BG PO2 68.9 mmHg (83.0-108.0); BG SAMPLE SITE RIGHT RADIAL; BG TOTAL HEMOGLOBIN 12.8 g/dL (13.5-17.5); BG VENT MODE NASAL CANNULA
[2025-07-16 02:50] VITALS: BP 148/82; PULSE 91; RESP 25; TEMP 36.7; O2SAT 95
[2025-07-16 04:47] LABS: INFLUENZA TYPE A Presumptive Negative (Pres. Neg.)
[2025-07-16 04:48] LABS: INFLUENZA TYPE B Presumptive Negative (Pres. Neg.)
== END 2025-07-16 03:22 | disposition short-term general hospital (02) ==
LOC: EDBD 23:11 → ER 23:25 → CMPBEDREQ 07-16 04:05
DX: J44.1 Chronic obstructive pulmonary disease with (acute) exacerbation (principal); I10 Essential (primary) hypertension; Z79.899 Other long term (current) drug therapy; Z20.822 Contact with and (suspected) exposure to COVID-19
CPT/HCPCS: 99285; 71045; 80048; 83880; 85025; 85610; 85730; 84484; 36415; 93005; 96374; 96361; 87426; 87804 ×2; 94640; 82805; 82375; 36600; A4615; J2919; J7030

== ENCOUNTER 2025-07-30 07:27 | Emergency (ER) | payer OTHER ==
[~2025-07-30] VITALS: Ht 177.8 cm; Wt 80.0 kg
[2025-07-30 08:21] LABS: BASOPHILS % 0.1 % (0.0-2.0); EOSINOPHILS % 2.8 % (0.0-5.0); HEMATOCRIT. 39.2 % (42.0-52.0); HEMOGLOBIN. 12.6 g/dL (14.0-18.0); LYMPHOCYTES % 8.7 % (20.0-50.0); MEAN PLATELET VOLUME 9.2 fl (7.4-10.4); MONOCYTES % 10.8 % (2.0-8.0); NEUTROPHILS % 77.6 % (40.0-76.0); PLATELET 206 x1000/uL (130-400); RED BLOOD CELL COUNT 4.58 mill/uL (4.7-6.1); RED CELL DISTRIBUTION WIDTH 15.6 % (11.6-14.6)
[2025-07-30 08:37] LABS: CREATININE 0.7 mg/dL (0.6-1.3); UREA NITROGEN BLOOD 10 mg/dL (9-23)
[2025-07-30 08:38] LABS: TROPONIN I HIGH SENSITIVITY 10 ng/L (3.0-53)
[2025-07-30 08:52] LABS: BG BASE EXCESS 4.6 mmol/L (-2.0-3.0); BG CARBOXYHEMOGLOBIN 1.0 % (0.5-1.5); BG DEOXYHEMOGLOBIN 5.9 % (0.0-5.0); BG FLOW(L/min) 2.00 L/min; BG FRACTION INSPIRED OXYGEN 28; BG HCO3 ACT 29.5 mmol/L (21.0-28.0); BG METHEMOGLOBIN 0.1 % (0.5-1.5); BG OXYGEN SATURATION 94.0 % (94.0-98.0); BG OXYHEMOGLOBIN 93.0 % (94.0-98.0); BG PCO2 45.3 mmHg (35.0-48.0); BG PH 7.432 (7.350-7.450); BG PO2 64.7 mmHg (83.0-108.0); BG SAMPLE SITE RIGHT BRACHIAL; BG TOTAL HEMOGLOBIN 12.9 g/dL (13.5-17.5); BG VENT MODE NASAL CANNULA
[2025-07-30 10:06] VITALS: PULSE 89; RESP 18; O2SAT 97
[2025-07-30] MEDS: IPRATROPIUM BROMIDE (0.02%) 0.5MG/2.5ML NEB HHN SCH (10:06)
[2025-07-30] MEDS: ALBUTEROL (0.083%) 2.5MG/3ML NEB HHN SCH (10:06)
[2025-07-30] MEDS: METHYLPREDNISOLONE SOD SUCC 125MG/2ML (ACT-O-VIAL) IV ONE (10:13)
[2025-07-30 10:36] VITALS: PULSE 91; RESP 16; O2SAT 99
[2025-07-30 11:30] VITALS: PULSE 92; RESP 18; O2SAT 99
[2025-07-30 11:57] VITALS: BP 150/90; PULSE 96; RESP 25; TEMP 37; O2SAT 94
[2025-07-30 13:15] LABS: INFLUENZA TYPE A Presumptive Negative (Pres. Neg.); INFLUENZA TYPE B Presumptive Negative (Pres. Neg.)
== END 2025-07-30 12:20 | disposition admitted as inpatient to this hospital (09) ==
LOC: ER 07:27 → CANBEDREQ 10:19 → ER 12:20
DX: J44.1 Chronic obstructive pulmonary disease with (acute) exacerbation (principal); R09.02 Hypoxemia; I10 Essential (primary) hypertension; Z79.899 Other long term (current) drug therapy; Z20.822 Contact with and (suspected) exposure to COVID-19
CPT/HCPCS: 99285; 96374; 71045; 87426; 80048; 85025; 84484; 87804 ×2; 36415; 94640; 82805; 82375; 93005; 36600; 94664; J2919; 94070; 98960